=== PATIENT | male | born 1965 | race Caucasian/White ===

== ENCOUNTER → 2018-08-29 | Outpatient (CLI) | payer OTHER | END | disposition home or self-care (01) | LOC: CFH 12:28 | PROVIDERS: ATTEND Nurse Practitioner Family | DX: R22.2 Localized swelling, mass and lump, trunk (principal) | CPT/HCPCS: 76604 ==

== ENCOUNTER 2020-03-23 12:31 | Day surgery (SDC) | payer BC, OTHER ==
[~2020-03-23] VITALS: Ht 188 cm; Wt 103.0 kg
[2020-03-23] MEDS ORDERED: BUPIVACAINE/PF 0.5% ONE (12:39)
[2020-03-23] MEDS ORDERED: EPINEPHRINE 1 MG/ML, 1ML ONE (12:39)
[2020-03-23 13:20] VITALS: BP 145/95
[2020-03-23] MEDS ORDERED: CHLORHEXIDINE 15 ML UDC ONE (13:24)
[2020-03-23] MEDS ORDERED: LACTATED RINGERS 1,000 ML IV SCH (13:30)
[2020-03-23] MEDS ORDERED: CHLORHEXIDINE 15 ML UDC MM ONE (13:30)
[2020-03-23] MEDS ORDERED: FENTANYL PF 100 MCG/2ML ONE (14:26)
[2020-03-23] MEDS ORDERED: MIDAZOLAM 1 MG/ML, 2ML ONE (14:26)
[2020-03-23] MEDS ORDERED: ONDANSETRON 2MG/ML, 2ML ONE (14:58)
[2020-03-23] MEDS ORDERED: ROCURONIUM 10 MG/ML,10ML ONE (14:58)
[2020-03-23] MEDS ORDERED: DEXAMETHASONE 4 MG/ML, 1ML ONE (14:58)
[2020-03-23] MEDS ORDERED: PROPOFOL 50 ML ONE (15:14)
[2020-03-23] MEDS ORDERED: SUGAMMADEX 200 MG/2 ML IVPush ONE (15:27)
[2020-03-23] MEDS ORDERED: PROMETHAZINE 25 MG SUPP PR PRN (16:00)
[2020-03-23] MEDS ORDERED: ACETAMINOPHEN 325 MG TABLET PO PRN (16:00)
[2020-03-23] MEDS ORDERED: OXYcodone 5 MG/5 ML ORAL.SOL UDC PO PRN (16:00)
[2020-03-23] MEDS ORDERED: METHOCARBAMOL 1,000 MG in DEXTROSE 5% 100 ML IV PRN (16:00)
[2020-03-23] MEDS ORDERED: FENTANYL PF 100 MCG/2ML IV PRN (16:00)
[2020-03-23] MEDS ORDERED: HYDROmorphone 1 MG/ML, 1ML INJ IVPush PRN (16:00)
[2020-03-23] MEDS ORDERED: ONDANSETRON 2MG/ML, 2ML IVPush PRN (16:00)
[2020-03-23] MEDS ORDERED: LORazepam 2 MG/ML, 1ML IVPush PRN (16:00)
[2020-03-23] MEDS ORDERED: PROMETHAZINE 25 MG/ML, 1ML IVPush PRN (16:00)
== END 2020-03-23 17:15 | disposition home or self-care (01) ==
LOC: OUT 12:31
PROVIDERS: ATTEND Surgery
DX: R22.2 Localized swelling, mass and lump, trunk (principal); Z20.828 Contact with and (suspected) exposure to other viral communicable diseases; Z72.89 Other problems related to lifestyle
CPT/HCPCS: 21931; 87635; 88307; J0171; J1100; J2250; J2405; J2704; J3010; J7120